=== PATIENT | female | born 1990 | race Caucasian/White ===

== ENCOUNTER 2018-05-23 19:29 | Emergency (ER) | payer OTHER ==
[~2018-05-23] VITALS: Ht 170.2 cm; Wt 139.7 kg
[~2018-05-23 19:29] MED LIST: ADVIL
[2018-05-23 19:36] VITALS: BP 140/106
--- NOTE | 2018-05-23 19:43 | NUR ---
pt ambulated to bed 1 with vss.
--- NOTE | 2018-05-23 20:10 | NUR ---
PT BIB SELF FOR COLD AND FLU LIKE SYMPTOMS X2 DAYS. PT REPORTS DRY COUGH AND SORE THROAT FOR 2 DAYS, RR RATE SYMMETRICAL, NON LABOERED, LUNG SOUNDS CLEAR THROUGHOUT. PT REPORTS N/V FOR 2 DAYS. PT REPORTS MUSCLE ACHES AND PAINS ALONG WITH A HEAD ACHE AT 8/10. PT REPORTS TEMPERATURE OF 98.9. ER MD NOTIFIED OF PT CONDITION. SAFETY PRECAUTIONS IN PLACE, WILL CONTINUE TO MONITOR.
[2018-05-23 20:35] VITALS: BP 135/86
--- NOTE | 2018-05-23 20:35 | NUR ---
Patient discharged with v/s stable. Written and verbal after care instructions given and explained. Patient alert, oriented and verbalized understanding of instructions. Ambulatory with steady gait. All questions addressed prior to discharge. ID band removed. Patient advised to follow up with PMD. Rx of Amoxicillin, Ibuprofen, and Promethazine given. Patient educated on indication of medication including possible reaction and side effects. Opportunity to ask questions provided and answered.
== END 2018-05-23 20:35 | disposition home or self-care (01) ==
LOC: MED 19:29
DX: H66.92 Otitis media, unspecified, left ear (principal); J06.9 Acute upper respiratory infection, unspecified
CPT/HCPCS: 36415; 81002; 81025; 87804; 99283

== ENCOUNTER 2019-01-24 09:05 | Emergency (ER) | payer OTHER ==
[~2019-01-24] VITALS: Ht 170.2 cm; Wt 152.2 kg
[2019-01-24 09:09] VITALS: BP 126/92
--- NOTE | 2019-01-24 09:14 | NUR ---
PT AMBULATED TO ER BED 11
--- NOTE | 2019-01-24 09:32 | NUR ---
DR LING AT BEDSIDE
--- NOTE | 2019-01-24 09:33 | NUR ---
C/O UPPER ABD PAIN AFTER EATING X 1 WEEK. 01/10. DIARRHEA X 2 DAYS. -N/V. PATIENT WAS SEEN MY PCP AND WAS TOLD TO TAKE TYLENOL, NO RELIEF. ABDOMEN ROUND AND SOFT, BOWEL SOUNDS ACTIVE IN ALL 4 QUADRANTS. VSS. AA0X4. BED IS DOWN, LOCKED, BED RAIL X 1, ERMD TO SEE PT. MED HX:DENIES MED HX:DENIES
[2019-01-24] MEDS ORDERED: ALUMINUM HYD/MAG/SIMETHICONE 30 ML UDC PO ONE (09:40)
[2019-01-24] MEDS ORDERED: LIDOCAINE VISCOUS 2% 20 ML UDC PO ONE (09:40)
[2019-01-24] MEDS ORDERED: FAMOTIDINE 20 MG/2 ML VIAL IVP ONE (09:40)
[2019-01-24] MEDS ORDERED: DICYCLOMINE 20 MG/2 ML VIAL IM ONE (09:40)
[2019-01-24] MEDS ORDERED: KETOROLAC 15 MG/ML VIAL IVP ONE (09:40)
[2019-01-24 09:45] LABS: APPEARANCE,URINE CLEAR (CLEAR); BILIRUBIN,URINE NEGATIVE (NEGATIVE); BLOOD, URINE NEGATIVE (NEGATIVE); COLOR,URINE YELLOW (YELLOW); LEUKOCYTE ESTERASE ,URINE TRACE (NEGATIVE); NITRITE, URINE NEGATIVE (NEGATIVE); PH,URINE 5.5 (5.0-9.0); UGLUCOSE NEGATIVE (NEGATIVE)
[2019-01-24 09:55] LABS: RBC,URINE NONE SEEN /HPF (0-5)
--- NOTE | 2019-01-24 10:05 | NUR ---
LAB AT BEDSIDE
--- NOTE | 2019-01-24 10:10 | NUR ---
us at bedside
[2019-01-24 10:21] LABS: BASOPHILS % (AUTO) 0.2 % (0.0-2.0); EOSINOPHILS # (AUTO) 0.1 K/uL (0-0.4); EOSINOPHILS % (AUTO) 1.1 % (0.0-4.0); HEMATOCRIT 42.1 % (36-48); HEMOGLOBIN 14.2 g/dL (12.0-16.0); LYMPHOCYTES % (AUTO) 29.9 % (20.5-51.1); MEAN CORPUSCULAR HEMOGLOBIN 30 pg (27-31); MEAN CORPUSCULAR HGB CONC 34 g/dL (33-37); MEAN CORPUSCULAR VOLUME 89.2 fL (80-94); MONOCYTES # (AUTO) 0.4 K/uL (0.8-1.0); MONOCYTES % (AUTO) 5.4 % (1.7-9.3); NEUTROPHILS # (AUTO) 4.3 K/uL (1.8-7.7); NEUTROPHILS % (AUTO) 63.4 % (42.2-75.2); PLATELET COUNT (AUTO) 247 K/uL (140-450); RED BLOOD CELL COUNT(AUTO) 4.72 MIL/uL (4.20-5.40); WHITE BLOOD COUNT (AUTO) 6.8 K/uL (4.8-10.8)
[2019-01-24 10:33] LABS: ANION GAP 13.1 (8-16); CARBON DIOXIDE 26.8 mmol/L (21-32); CREATININE 0.9 mg/dL (0.6-1.3); POTASSIUM 3.9 mmol/L (3.5-5.1)
[2019-01-24 10:39] LABS: ALBUMIN 3.3 g/dL (3.4-5.0); TOTAL BILIRUBIN 0.7 mg/dL (0.0-1.0)
[2019-01-24 11:54] VITALS: BP 120/70
--- NOTE | 2019-01-24 11:55 | NUR ---
Patient discharged with v/s stable. Written and verbal after care instructions given and explained. Patient verbalized understanding. Ambulatory with steady gait. All questions addressed prior to discharge. Advised to follow up with [facility] REGARDING GALLSTONES
== END 2019-01-24 11:55 | disposition home or self-care (01) ==
LOC: MED 09:05
DX: K80.20 Calculus of gallbladder without cholecystitis without obstruction (principal)
CPT/HCPCS: 36415; 76705; 80053; 81001; 83690; 85025; 87086; 96372; 96374; 96375; 99284; J0500; J1885; J3490; Q0092